=== PATIENT | male | born 1930 | race Caucasian/White ===

== ENCOUNTER 2016-09-13 22:05 | Emergency (ER) | payer MEDICARE ==
[~2016-09-13 22:05] MED LIST: ALBUTEROL0.63 MG/3 IH; ASA CHILDREN'S81 MG PO; ATARAX-DPS25 MG PO; CARDIZEM CD240 M1 PO; DILTIAZEM ER120 M2 PO; DIOVAN40 MG PO; DUONEB DPS3 ML IH; DUONEB IH; FLOMAX DPS0.4 MG PO; KEFLEX-DPS500 MG PO; KENALOG 0.1% D454 GM TP; LANOXIN DPS0.125 MG PO; LASIX DPS40 MG PO; LASIX20 M1 PO; LASIX20 MG PO; NITROGLYCERIN0.4 MG SL; NITROSTAT0.4 MG SL; OMEPRAZOLE20 M1 PO; PRILOSEC20 MG PO; PROVENTIL2.5 MG/3 M IH; SOTALOL80 MG PO; SURFAK DPS240 MG PO; SURFAK240 MG PO; TESSALON PERLE100 MG PO; TOPROL XL DPS50 MG PO; TYLENOL DPS325 MG PO; TYLENOL325 MG PO; XANAX0.25 MG PO; XARELTO20 MG PO
--- NOTE | 2016-09-19 02:33 | ER ---
ADMIT: 09/13/2016 RM/LOC: ER [facility] MR#: [id number] 6490 [facility] [address] [place] [phone] ALANMAGALIS VILLASENOR [place] [address] Emergency Room Report SEX: M AGE: 86 : 1930 DATE: 09/13/2016 TIME: 2204 Please refer to my T-sheet for complete H and P. HISTORY OF PRESENT ILLNESS: Briefly, the patient is an 86-year-old who has a known history of congestive heart failure. He is on Bumex. He also has had a colon cancer with abdominal surgery. He has an abdominal wall weakness, where he has a hernia. Comes in because there is a leaking that has been going around and he has also had a cough, really just started today. He is having no pain. PHYSICAL EXAMINATION: VITAL SIGNS: His blood pressure is 127/74, pulse 70, respirations 20, temp 97, saturating 97%. GENERAL: No acute distress. HEENT: Grossly normal. LUNGS: Trace of wheeze. HEART: Regular. ABDOMEN: Soft. He has a ventral wall area that does have a little bit of leaking, just a small pinhole that leaks over the skin area, little bit erythematous around it. EMERGENCY DEPARTMENT COURSE: The chest x-ray revealed cardiomegaly with a trace congestive heart failure. His EKG was paced, rate 66. Chemistries were all normal except BUN 30, glucose 113, and a creatinine 1.6. His BNP was 5651. CBC normal except hemoglobin 11.5, and platelets 87. We gave him a DuoNeb. I then gave him Lasix 80 mg IV and 500 of Keflex p.o. I had a long discussion. He is ready for discharge. ASSESSMENT: 1. Congestive heart failure. 2. Bronchitis. 3. Abdominal wall fistula. PLAN: Keep his appointment with Wound Care tomorrow. Keflex 500 q.i.d. for 7 days. Follow up with Dr. Maciel and follow up with Dr. Mark for his abdominal drainage. Return if worse or problems. Brandon Eagle MD/ bina JOB #: [id number] CC: Brandon Eagle MD, Attending Physician Trell Maciel MD, Family Physician
== END 2016-09-14 00:46 | disposition home or self-care (01) ==
LOC: ER 22:05
DX: I11.0 Hypertensive heart disease with heart failure (principal); I50.9 Heart failure, unspecified; J40 Bronchitis, not specified as acute or chronic; K63.2 Fistula of intestine; I48.91 Unspecified atrial fibrillation; Z95.1 Presence of aortocoronary bypass graft; Z90.49 Acquired absence of other specified parts of digestive tract; Z85.038 Personal history of other malignant neoplasm of large intestine; Z88.1 Allergy status to other antibiotic agents; Z79.899 Other long term (current) drug therapy; Z79.82 Long term (current) use of aspirin

== ENCOUNTER 2016-10-17 18:14 | Inpatient (IN) | payer MEDICARE ==
[~2016-10-17] VITALS: Ht 177.8 cm; Wt 105.4 kg
--- NOTE | ~2016-10-17 | WND ---
ADMIT: 10/17/2016 RM/LOC: 524 [facility] MR#: [id number] [facility]#: [id number] [address] [address] ALANMAGALIS VILLASENOR [address] [place] [address] Wound Care Clinic SEX: M AGE: 86 : 1930 DATE OF VISIT: 10/18/2016 TIME IN: 12:00. TIME OUT: 12:25. REASON FOR VISIT: Evaluation and treatment of bilateral lower ulcerations. A request for wound care from Dr. Maciel. HISTORY OF PRESENT ILLNESS: This is an 86-year-old male, who was actually seen by Wound Care in September of 2014 for incontinence associated dermatitis to his buttocks. He has not been seen since. He was admitted to [facility] on 10/17/2016 with a history of shortness of breath and dyspnea upon exertion for 1 week. He had swelling in his lower extremities. He states his leg started to weep and drain approximately 3 weeks ago. This is the first time he has noted drainage from his legs. He has had concerns about a cough, but it is no different from his baseline cough. He had talked to the Family Practice and notified to increase his Bumex but when that did not provide any relief from his shortness of breath, he presented to the ER. He is admitted for further evaluation and cares. PAST MEDICAL HISTORY: Congestive heart failure, coronary artery disease, hypertension, COPD, atrial fibrillation, hyperlipidemia gastroesophageal reflux disease, benign prostatic hypertrophy, obesity, and history of colon cancer and prostate cancer. PAST SURGICAL HISTORY: Includes resection of his colon. ALLERGIES: Erythromycin, doxycycline, and iodinated contrast media. MEDICATIONS: 1. Children's aspirin. 2. Betapace. 3. Colace. 4. TPS. 5. Diovan. 6. Eliquis. 7. Flomax. 8. Toprol-XL. 9. DuoNeb. 10.NovoLog. 11.Lasix. 12.Normal saline. PRN medications: 1. Maalox. 2. Tylenol. 3. DuoNeb. ADMIT: 10/17/2016 RM/LOC: 524 [facility] MR#: [id number] [address] [address] MAGALIS NAILS [address] [place] [address] Wound Care Clinic SEX: M AGE: 86 : 1930 4. Nitrostat. 5. Normal saline. FAMILY HISTORY: Mother with stroke in her 90s. Father stroke in his 70s. Family history of cancer, hypertension, and heart disease. SOCIAL HISTORY: He is . He lives in [place], [place] on the family farm. He is retired from farming. Denies any tobacco, alcohol, or chemical use. REVIEW OF SYSTEMS: He is examined in his hospital room where he is sitting in his recliner with his legs down. He is alert and oriented x3. He denies any recent fever or chills. No nausea or vomiting. His appetite is good. He denies any chest pain. He does have congestion per his usual. No abdominal discomfort. He states his legs are sometimes tender. He has noticed clear drainage from the right leg for the last 3 weeks, and he thinks he might have had an abscess in his left leg, although he describes the drainage as clear. PHYSICAL EXAMINATION: VITAL SIGNS: Temperature 97, pulse 70, respirations 28, blood pressure 108/64, and O2 sats on room air 93%. EXTREMITIES: Focused exam is to bilateral lower extremities. On the right lower extremity, foot circumference 26.5 cm, ankle is 29.5 cm, calf 20 cm, malleolus 36 cm. Posterior tibialis 1+. Dorsalis pedis is 2+. On the anterior brown, he has an area that measures 5.5 cm x 7 cm that had 8 scattered openings that are initially covered with dried drainage. After cleansing, there was a red moist wound base. A small amount of serous drainage noted. The largest opening in the area was 1 cm x 1.5 cm, depth of 0.1 cm. He does have edema noted to his right lower extremity. To the left lower extremity, foot circumference 27 cm, ankle is 30.5 cm, and calf 20 cm, malleolus 38 cm. Posterior tibialis is 1+. Dorsalis pedis is 2+. He has edema that is pitting in greater than the right lower extremity. On the anterior medial side of his brown is a small opening that measures 0.3 cm x 0.3 cm, depth of 0.1 cm, red, moist wound base, and just a couple drops of serous drainage noted. On the posterior calf is a linear crust that measures 0.4 cm x 4 cm. This is attached. Surrounding this are several smaller crusts. No drainage noted from the posterior area. Does feel slightly boggy. He does have hemosiderin staining noted bilaterally. ASSESSMENT: Superficial cutaneous ulceration due to chronic venous stasis and edema. TREATMENT PLAN: Both legs were washed well with warm soapy water, rinsed, and patted dry. After washing, the wound bases were red and moist with removal of the dried serous drainage. No Sting Barrier wipe was placed over the small ADMIT: 10/17/2016 RM/LOC: 524 [facility] MR#: [id number] [address] [place] [phone] MAGALIS NAILS [address] [place] [address] Wound Care Clinic SEX: M AGE: 86 : 1930 opening on the anterior medial side of the left leg. To the open areas on the anterior right brown and to the posterior calf of the left leg and the anterior medial opening of the left leg, Mepilex Ag was applied with Medipore tape. This is to be changed twice weekly. Size small EdemaWear was applied from the toes to popliteal crease. He was instructed on keeping his leg elevated above heart level in order to help with the edema. Recommended that his legs be elevated when he is in the recliner. His legs elevated on 2 pillows at bedtime. Also, recommended no Sting Barrier wipe around the open areas prior to application of the Mepilex. Requested a followup appointment in Wound Care 7 to 10 days after discharge. Thank you for this referral. Wound will continue to follow. Rachel Dye APRN/ bina JOB #: [id number] CC: Trell Maciel, Attending Physician Trell Maciel, Family Physician
[2016-10-20] MEDS ORDERED: BETAPACE80 MG PO (21:18)
[2016-10-20] MEDS ORDERED: FLOMAX DPS0.4 MG PO (21:18)
[2016-10-20] MEDS ORDERED: TOPROL XL DPS50 MG PO (21:18)
[2016-10-20] MEDS ORDERED: DIOVAN80 MG PO (21:18)
[2016-10-20] MEDS ORDERED: ASA CHILDREN'S81 MG PO (21:19)
[2016-10-20] MEDS ORDERED: ELIQUIS2.5 MG PO (21:19)
[2016-10-20] MEDS ORDERED: DUONEB DPS3 ML IH (21:20)
[2016-10-20] MEDS ORDERED: MAALOX DPS30 ML PO (21:20)
[2016-10-20] MEDS ORDERED: NITROSTAT0.4 MG SL (21:20)
[2016-10-20] MEDS ORDERED: BUMETANIDE2 MG PO (21:21)
[2016-10-20] MEDS ORDERED: ZAROXOLYN5 MG PO (21:21)
--- NOTE | 2016-10-22 17:44 | HP ---
ADMIT: 10/17/2016 RM/LOC: 524 [facility] MR#: [id number] [facility]#: [id number] [address] [address] JAQUI MAGALIS Harris [address] [place] [address] History and Physical SEX: M AGE: 86 : 1930 DATE OF SERVICE: CHIEF COMPLAINT: Shortness of breath, dyspnea with exertion for 1 week. HISTORY OF PRESENT ILLNESS: The patient is an 86-year-old male, who states he has had worsening shortness of breath over the past week. He has also noticed some swelling to the lower extremities. He says that when he is sitting, his breathing is a little bit easier, but anytime that he has gotten up to go to the bathroom or moving around, he is having a lot more difficulty breathing. He has had a little bit of a cough, but it is no different than his normal baseline cough. He says he is coughing up just white mucus. No fever, no chills. No rhinorrhea or upper respiratory symptoms or sore throat. No chest pain or palpitations. The patient called in to our clinic today to ask what he should do due to his shortness of breath and he was told to increase his Bumex. However, that did not provide any relief today, so he came into the ER. The patient states he has been taking his medications as prescribed otherwise. The patient is not sure if he has gained any weight or not, but again has noted significant edema in his lower extremities. PAST MEDICAL HISTORY: Significant for congestive heart failure, coronary artery disease, hypertension, COPD, atrial fibrillation, hyperlipidemia, GERD, BPH, obesity, history of colon cancer and prostate cancer. SOCIAL HISTORY: He is . He does not drink alcohol. He does not do drugs and has never smoked. FAMILY HISTORY: Noncontributory. PAST SURGICAL HISTORY: Pacemaker, AICD placement, colon cancer resection, appendectomy, and gallbladder removal. REVIEW OF SYSTEMS: GENERAL: He is positive for fatigue. No fever. No chills. No headache. HEENT: No sore throat. No rhinorrhea. No vision changes. No neck pain. HEART: No palpitations. Does have a history of coronary artery disease and has cough, shortness of breath, and dyspnea on exertion. LUNGS: Denies any wheeze. Does have a cough. Confirms shortness of breath. ABDOMEN: No pain. No change in bowel movements. EXTREMITIES: Swelling in both legs. No pain in his lower extremities. NEURO: No seizure or stroke-like activity. PHYSICAL EXAMINATION: VITAL SIGNS: Most recent blood pressure is 106/81 with a MAP of 85, heart rate 76, respiratory rate 22, 97% SpO2 on room air. GENERAL: No acute distress. Alert and oriented x3, pleasant. HEENT: Normocephalic and atraumatic. Moist mucous membranes. Extraocular muscles are intact. No bruits bilaterally. HEART: Regular rate and rhythm. No murmurs are appreciated. LUNGS: Coarse breath sounds bilaterally. Increased work of breathing. ADMIT: 10/17/2016 RM/LOC: 524 [facility] MR#: [id number] [address] [place] [phone] MAGALIS NAILS [address] [place] [address] History and Physical SEX: M AGE: 86 : 1930 ABDOMEN: Soft, positive bowel sounds, distended. EXTREMITIES: Showed 2+ edema to at least mid thigh. NEURO: Cranial nerves II through XII are grossly intact. LABORATORY AND X-RAY DATA: White blood cell count was normal. Hemoglobin was slightly low at 12.6. Platelets were low at 93. Electrolytes include a sodium of 144, potassium 4.2, 106 chloride, 28 CO2, 33 BUN, 1.6 creatinine, and glucose is 94. BNP was 4546. Chest x-ray showed cardiomegaly with CHF and pleural effusions bilaterally. ASSESSMENT AND PLAN: 1. Acute on chronic congestive heart failure exacerbation. 2. Hypertension. 3. Atrial fibrillation. 4. Hyperlipidemia 5. Chronic obstructive pulmonary disease. 6. History of coronary artery disease. 7. Benign prostatic hypertrophy. 8. History of colon cancer. We will admit the patient and start him on IV Lasix to help diurese the fluid off him. It is noted that he was at least 19 pounds get daily weights and do accurate I's and O's, fluid restrict him, and we will get an echo in the morning and repeat labs as well in the morning. We will consider cardiac consult if needed at a later date. Megan Stevens MD Resident / Trell Maciel MD / bina JOB #: [id number] CC: Trell Maciel, Attending Physician Trell Maciel, Family Physician
--- NOTE | 2016-11-01 09:31 | CO ---
ADMIT: 10/17/2016 RM/LOC: 524 [facility] MR#: [id number] [address] [address] MAGALIS NAILS [address] [place] [address] Consultation SEX: M AGE: 86 : 1930 DATE OF CONSULTATION: 10/18/2016 ATTENDING PHYSICIAN: Trell Maciel CONSULTING PHYSICIAN: Carlin Valverde MD REASON FOR CONSULT: Acute on chronic systolic heart failure. This is Cat Lira RN, scribing for Dr. Carlin Valverde. HISTORY OF PRESENT ILLNESS: Magalis is a pleasant 86-year-old gentleman, I have been asked to see in Cardiology consultation by Dr. Trell Maciel for acute on chronic systolic heart failure. He is well known to [facility]. He follows regularly with Dr. Luis Antonio Moraes. He was last seen in clinic in August of this year. His weight at that time was 243 pounds. He has history of three vessel bypass, RIVERA to LAD, SVG to OM, and SVG to RCA in 2008. He also has had history of multiple stents with last catheterization in 2008 prior to bypass surgery. He also has history of ischemic cardiomyopathy with last catheterization in August of this year showing ejection fraction 30% to 35%. He is status post BiV ICD placement as well as AV node ablation for history of permanent atrial fibrillation and SVT. Last stress test was in 2014, which revealed no change from 2012 with lakshmi-infarct ischemia. He has mild mitral regurgitation, hypertension, hyperlipidemia. Magalis presented to [facility] yesterday with complaints of increased shortness of breath. On speaking to him today, he states that his symptoms have been going on for the past 10 to 12 days, progressively getting worse, stating that he is currently now having some orthopnea, increased shortness of breath along with his peripheral edema. He has had some chest discomfort, but states that it is primarily with trying to breathe with his shortness of breath with his lungs when he tries to take a deep breath. He denies any chest pain on exertion. He denies any palpitations or presyncope. His blood pressures have been well controlled in the 120s over 80s. He is already on IV Lasix 80 mg b.i.d., and has been slowly diuresing with that. Chest x-ray did demonstrate bilateral pleural effusions right greater than left, and his proBNP is mildly elevated at 4500. He does have elevated creatinine at 1.6, but this is right about his baseline. Currently, he has no complaints of chest pain. PAST MEDICAL HISTORY: Cardiac history as outlined above including coronary artery disease, ischemic cardiomyopathy, BiV ICD placement, AV node ablation with history of atrial fibrillation and SVT, hypertension, hyperlipidemia, rosacea, macular degeneration, legally blind, bilateral cataract extraction, chronic sinusitis, hearing loss, COPD with bronchitis and asthma, calhoun's lung, gastroesophageal reflux disease, hiatal hernia, gallbladder disease, status post cholecystectomy, diverticulitis, BPH, chronic kidney disease stage III, kidney stones history, osteoarthritis, chronic anemia, colon cancer, and prostate cancer. ADMIT: 10/17/2016 RM/LOC: 524 [facility] MR#: [id number] [address] [place] [phone] MAGALIS NAILS [address] [place] [address] Consultation SEX: M AGE: 86 : 1930 PAST SURGICAL HISTORY: Includes tonsillectomy, appendectomy, colon surgery, cataract extraction, cholecystectomy, TURP, colon surgery for cancer, and eye surgery for macular degeneration. ALLERGIES: 1. ZOCOR. 2. IODINE. 3. TETRACYCLINE. 4. MACROLIDE. MEDICATIONS: Current medications include: 1. Sotalol 80 mg half a tablet p.o. b.i.d. 2. Metoprolol-XL 50 mg daily. 3. Flomax 0.4 daily. 4. Diovan 40 daily. 5. Eliquis 2.5 b.i.d. 6. DuoNeb q.i.d. 7. Aspirin 81 daily. FAMILY HISTORY: Noncontributory. SOCIAL HISTORY: Magalis is . He lives at home alone. He denies any drug use, alcohol use, or caffeine. He has no tobacco history. REVIEW OF SYSTEMS: GENERAL: He reports no change in activity tolerance, fever, chills, or sweats. He is weight is up about 6 pounds in the last month or so. EYES: He is legally blind due to macular degeneration. He has bilateral cataract extraction. No glaucoma. THROAT, MOUTH, AND EARS: Chronic sinusitis. Hearing loss. Denies any sore throat. RESPIRATORY: History of bronchitis, asthma with COPD. History of calhoun's lung. Denies any hemoptysis. GASTROINTESTINAL: History of gastroesophageal reflux disease, hiatal hernia, gallbladder disease, status post cholecystectomy. No GI bleeding. GENITOURINARY: History of BPH, chronic kidney disease, kidney stones. Creatinine is at baseline of 1.6. Denies any hematuria. MUSCULOSKELETAL: History of osteoarthritis. Denies any gout. ENDOCRINE: Denies history of thyroid dysfunction or diabetes. HEMATOLOGY: History of anemia, colon cancer, and prostate cancer. NEUROLOGIC: Denies chronic headaches, dizziness, syncope, stroke, seizures or numbness or tingling. PSYCHIATRIC: Denies history of mental illness or feelings of depression. PHYSICAL EXAMINATION: VITAL SIGNS: Blood pressure 129/81, heart rate 70, respirations 20, temperature 97.4, oxygenation 96% on room air. SKIN: Casas, warm and dry. EYES: Sclerae clear. No xanthelasmas. ADMIT: 10/17/2016 RM/LOC: 524 [facility] MR#: [id number] [address] [address] JAQUIMAGALIS Kimberly [address] [place] [address] Consultation SEX: M AGE: 86 : 1930 ENT: Oral mucosa is pink and moist. No jugular venous distention or carotid bruits. CHEST: Respirations are even and unlabored. Lungs are clear to auscultation. HEART: Regular rate and rhythm. Normal S1, S2. No murmurs, rubs or gallops. ABDOMEN: Soft and nontender. MUSCULOSKELETAL: Gait is normal. EXTREMITIES: Peripheral pulses palpable. No clubbing, cyanosis. Moderate edema bilaterally. PSYCHIATRIC: Alert and oriented. Mood and affect are appropriate. DIAGNOSTIC DATA: Chest x-ray on 10/18, shows bilateral pleural effusions right greater than left. Sodium 143, potassium 4.0, BUN 34, creatinine 1.6, glucose 164, proBNP 4546. White blood cell count 4.8, hemoglobin 11.7, hematocrit 39.3, platelets 80. ASSESSMENT AND PLAN: 1. Acute on chronic systolic heart failure. 2. Ischemic cardiomyopathy. 3. Biventricular ICD. 4. Permanent atrial fibrillation. 5. Chronic kidney disease. With his heart failure, I would plan on more diuresis. He is already on Lasix 80 mg IV b.i.d., and I think this is appropriate. We will need to watch his renal function closely. I will also recommend continuing his home medications as ordered currently. His blood pressure looks okay. He is not on a statin due to problems in the past with myalgias and allergies. I will continue to follow him closely. Thank you for the consultation. "I have read and agree with the documentation that has been completed regarding this visit. By signing this record, I attest that the documentation was completed in my physical presence and is an accurate record of the encounter." Cat Lira RN / Carlin Valverde MD / brigittel JOB #: [id number] CC: Trell Maciel, Attending Physician Trell Maciel, Family Physician
--- NOTE | 2016-11-04 12:02 | DS ---
ADMIT: 10/17/2016 RM/LOC: 524 [facility] MR#: [id number] [facility]#: [id number] [facility] [address] [address] ALANMAGALIS VILLASENOR [address] [place] [address] General Discharge Summary SEX: M AGE: 86 : 1930 ADMISSION DATE: 10/17/2016 DISCHARGE DATE: 10/20/2016 CONSULTS: Cardiology. FINAL DIAGNOSES: 1. Acute on chronic systolic heart failure. 2. Hypertension. 3. Permanent atrial fibrillation. 4. Chronic kidney disease. 5. History of coronary artery disease. 6. Biventricular ICD. 7. History of colon cancer. HISTORY OF PRESENT ILLNESS: The patient states over the past week or so, he has become progressively more short of breath and more tired. He is also more short of breath with exertion. Upon arrival to the ER, the patient had a chest x-ray that showed pulmonary edema bilaterally with left being worse than right. He was also requiring oxygen supplementation. Hospital Course: We started the patient on IV Lasix of about 80 mg which did improve his shortness of breath. Over the next few days, he continued to improve with his breathing as well as his vital signs. Cardiology was consulted as well. They helped us manage his acute CHF. Of note, the patient did have a few episodes of short runs of ventricular tachycardia that resolved. DISCHARGE ORDERS: Include follow up with HUGH Grier FERDINAND, in 2 weeks. Follow up with Dr. Maciel in 4-5 days. He is to stay on a low-sodium diet. Medications at time of discharge include: 1. Baby aspirin daily. 2. Betapace 50 mg b.i.d. 3. Colace 100 mg p.o. b.i.d. 4. Diovan 40 mg daily. ADMIT: 10/17/2016 RM/LOC: 524 [facility] MR#: [id number] 2620 [facility] [address] [place] [id number] JAQUIMAGALIS [address] [place] [address] General Discharge Summary SEX: M AGE: 86 : 1930 5. Eliquis 2.5 mg b.i.d. 6. Flomax 0.4 mg daily. 7. Toprol 50 mg daily. 8. DuoNeb q.i.d. 9. Maalox and Tylenol as needed. 10.DuoNeb as needed. 11.Nitrostat as needed. 12.Zaroxolyn 5 mg p.o. on Saturday, Saturday, Saturday. Other orders for discharge include an [facility] consult. CONDITION AT TIME OF DISCHARGE: Stable and improved. Megan Stevens MD Resident / Trell Maciel MD / bian JOB #: [id number] CC: Trell Maciel MD, Attending Physician Trell Maciel MD, Family Physician
--- NOTE | 2016-11-24 08:25 | ER ---
ADMIT: 10/17/2016 RM/LOC: 524 [facility] MR#: [id number] [address] [address] MAGALIS NAILS [address] [place] [address] Emergency Room Report SEX: M AGE: 86 : 1930 DATE: 10/17/2016 ADDENDUM: The patient comes to the ER because he has had a cough and shortness of breath. It started today. He did speak with Dr. Maciel, and he was told to increase his Lasix today, which he did not do. He states he is having increased shortness of breath when he lies flat and when he has coughing, and he feels like he is coughing up green phlegm. On physical exam, I do hear wheezes bilaterally. His white count was normal. BNP was 4546. DIAGNOSIS: Congestive heart failure exacerbation. I spoke with Dr. Odell at 2120 hours, and this patient will be admitted by her. He was given Decadron and Lasix in the emergency room. Please see my T- sheet. HUGH Trinidad / Joe Mejia MD / brigittel JOB #: [id number] CC: Trell Maciel MD, Attending Physician Trell Maciel MD, Family Physician
== END 2016-10-20 17:11 | disposition home health service (06) | DRG 291 ==
LOC: ER 18:14 → 5MS 21:50
PROVIDERS: ADMIT Family Medicine
DX: I13.0 Hypertensive heart and chronic kidney disease with heart failure and stage 1 through stage 4 chronic kidney disease, or unspecified chronic kidney disease (principal); I50.23 Acute on chronic systolic (congestive) heart failure; I47.2 Ventricular tachycardia; J67.0 Farmer's lung; E11.22 Type 2 diabetes mellitus with diabetic chronic kidney disease; L97.911 Non-pressure chronic ulcer of unspecified part of right lower leg limited to breakdown of skin; L97.921 Non-pressure chronic ulcer of unspecified part of left lower leg limited to breakdown of skin; I48.2 Chronic atrial fibrillation; J44.9 Chronic obstructive pulmonary disease, unspecified; I48.91 Unspecified atrial fibrillation; I25.10 Atherosclerotic heart disease of native coronary artery without angina pectoris; E78.5 Hyperlipidemia, unspecified; K21.9 Gastro-esophageal reflux disease without esophagitis; N40.0 Benign prostatic hyperplasia without lower urinary tract symptoms; E66.9 Obesity, unspecified; I34.0 Nonrheumatic mitral (valve) insufficiency; I25.5 Ischemic cardiomyopathy; H35.30 Unspecified macular degeneration; H54.8 Legal blindness, as defined in USA; J32.9 Chronic sinusitis, unspecified; H91.90 Unspecified hearing loss, unspecified ear; J45.909 Unspecified asthma, uncomplicated; I87.8 Other specified disorders of veins; K44.9 Diaphragmatic hernia without obstruction or gangrene; N18.3 Chronic kidney disease, stage 3 (moderate); M19.90 Unspecified osteoarthritis, unspecified site; Z79.82 Long term (current) use of aspirin; Z85.038 Personal history of other malignant neoplasm of large intestine; Z85.46 Personal history of malignant neoplasm of prostate; Z95.810 Presence of automatic (implantable) cardiac defibrillator; Z95.5 Presence of coronary angioplasty implant and graft; Z95.1 Presence of aortocoronary bypass graft; Z68.35 Body mass index [BMI] 35.0-35.9, adult; Z66 Do not resuscitate; Z91.138 Patient's unintentional underdosing of medication regimen for other reason